=== PATIENT | male | born 2000 | race Caucasian/White ===

== ENCOUNTER 2024-11-13 19:23 | Emergency (ER) | payer OTHER, SELFPAY ==
[2024-11-13 19:31] VITALS: BP 136/74; PULSE 69; RESP 16; TEMP 36.9; O2SAT 100
--- NOTE | 2024-11-13 19:36 | ED_ITS ---
HPI - Skin/Abscess/Foreign Bdy General Chief complaint: Skin/Abscess/Foreign Body Stated complaint: SPIDER BITE Time Seen by Provider: 11/13/24 19:36 Source: patient and RN notes reviewed Mode of arrival: ambulatory Limitations: no limitations History of Present Illness HPI narrative: 24-year-old male presents Express Care complaining of possible spider bite to his left thigh. Patient said he noticed a a red bump on his left thigh on Monday. Said the bump was itchy on Monday and nausea redness and swelling has worsened. Patient says their house has brown recluse spiders in their home but he has denies possibility a brown recluse spider bite him. Patient has marked the border of his wound. Patient denies any fevers, body aches, chills, abnormal discharge, or muscle aches. Patient denies any systemic past medical history. Patient's tetanus is up today. Related Data Allergies Allergy/AdvReac Type Severity Reaction Status Date / Time amoxicillin Allergy Mild RED DOTS Verified 11/13/24 19:32 Review of Systems Review of Systems: CONSTITUTIONAL: Denies fever, chills, or sweats. EYES: Denies visual changes, redness, or discharge. ENT: Denies rhinorrhea, congestion, sore throat, or otalgia. CARDIOVASCULAR: Denies chest pain, palpitations, or edema. RESPIRATORY: Denies cough or dyspnea. GASTROINTESTINAL: Denies abdominal pain, nausea, vomiting, or diarrhea. GENITOURINARY: Denies dysuria or hematuria. SKIN: Denies rash or itching. Positive for wound. MUSCULOSKELETAL: Denies back pain, joint pain, or myalgia. NEUROLOGIC: Denies headache, numbness, or weakness. PSYCHIATRIC: Denies anxiety or depression. All other systems reviewed are negative, except as documented in HPI. PMFSH Comments At the time of my signature, I reviewed and agree with the nursing past medical, surgical, social, and family history. There is no relevant family history pertinent to the patient complaint. Exam Narrative: GENERAL: This is a well-nourished, well-developed adult, in no apparent distress. They are non ill-appearing, nontoxic appearing. HEAD: normocephalic, atraumatic. EYES: Sclera clear/white. Conjunctiva normal. Vision is grossly intact. Extraocular movements intact EARS: External ears normal, Hearing grossly intact. NOSE: External nose normal THROAT: Mucous membranes moist, NECK: Normal range of motion CARDIOVASCULAR: Regular rate and rhythm without murmurs, gallops, or rubs. RESPIRATORY: Respiratory rate normal, respiratory effort nonlabored, no respiratory distress SKIN: Left thigh: There is a single red pustule measuring approximately 1 cm in diameter. No obvious bug bite or puncture wu to the center of the pustule. No central clearing. No area of fluctuance, no induration. Border marked, scant surrounding cellulitis present. No necrosis or discharge. NEURO: awake, alert, and oriented to person, place and time. There were no obvious focal neurologic abnormalities. EXTREMITIES: No joint tenderness, effusion, or edema noted. BACK: Nontender without deformity. No CVA tenderness. Course Course Emergency Course: Portions of this record may have been created with voice recognition software Level of Care: Express Care Visit Vital Signs Vital signs: Vital Signs Temperature 98.5 F 11/13/24 19:31 Pulse Rate 69 11/13/24 19:31 Respiratory Rate 16 11/13/24 19:31 Blood Pressure 136/74 11/13/24 19:31 Pulse Oximetry 100 11/13/24 19:31 Temperature 98.5 F 11/13/24 19:31 Pulse Rate 69 11/13/24 19:31 Respiratory Rate 16 11/13/24 19:31 Blood Pressure 136/74 11/13/24 19:31 Pulse Oximetry 100 11/13/24 19:31 Reviewed MDM - Skin/Abscess/Foreign Bdy MDM Narrative Medical decision making narrative: There is a low suspicion the patient encountered a brown recluse bite. The patient says they do have brown recluse spider is in his home, the patient does not believe he was bit by a spider. Patient patient is exhibiting no signs of a brown recluse spider bite. Wound appears to be a folliculitis. Will treat with doxycycline as it appears that there is beginning of surrounding cellulitis to the pustule. Discussed physical exam findings. Advised supportive measures and signs/symptoms to go to the ER. Pt is appropriate for outpt treatment and f/u. Differential Diagnosis Differential diagnosis: Likely abscess of skin or subcutaneous tissue, cellulitis and other (Folliculitis) Critical Care Time Critical Care Time Critical Care Time: No Discharge Plan Discharge Clinical Impression: Folliculitis Patient Disposition: Home Condition: Stable Instructions: Antibiotic Form, Folliculitis (ED) Additional Instructions: Take antibiotics as directed. Wash the skin daily with mild soap and water. F ollow-up with primary care provider in 1 week. If redness worsens, you develop any fevers, notice any red streaking, or anything other concerns, please go to the ER immediately Patient Language: Citizen Of [place] Prescriptions: New doxycycline monohydrate 100 mg capsule 100 mg PO BID 7 Days Qty: 14 0RF Follow-up/Referrals: UNKNOWN,DOCTOR [Primary Care Provider] - Time of Disposition: 19:52
== END 2024-11-13 20:00 | disposition home or self-care (01) ==
DX: L73.9 Follicular disorder, unspecified (principal)
CPT/HCPCS: 99203; G0463

== ENCOUNTER 2025-05-15 18:36 | Emergency (ER) | payer OTHER, SELFPAY ==
[2025-05-15 18:49] VITALS: BP 142/71; PULSE 60; RESP 16; TEMP 36.6; O2SAT 100
--- NOTE | 2025-05-15 19:14 | ED.SKABFB ---
HPI - Skin/Abscess/Foreign Bdy General Chief complaint: Ear Stated complaint: Ear Irritation Time Seen by Provider: 05/15/25 19:07 Source: patient and RN notes reviewed Mode of arrival: ambulatory Limitations: no limitations History of Present Illness HPI narrative: 25-year-old male patient presents today with a pruritic rash to the right posterior ear x2 days, worsening since onset. No OTC treatment prior to arrival. No other symptoms. States he was in a field last weekend but unsure of the etiology of the rash. Related Data Allergies Allergy/AdvReac Type Severity Reaction Status Date / Time amoxicillin Allergy Mild RED DOTS Verified 11/13/24 19:32 PMFSH Comments At time of signature, I have reviewed and agree with nursing past medical, surgical, social and family history unless otherwise noted. Please see nursing chart for further information. There is no relevant family history pertinent to the presenting complaint Exam Narrative: GENERAL: Well-appearing, well-nourished, and in no acute distress. HEAD: Normocephalic, atraumatic. EYES: EOMI. No redness or drainage. Conjunctivae normal. ENT: Mucous membranes pink and moist. NECK: Normal AROM. CHEST: No respiratory distress. EXTREMITIES: Normal range of motion. No edema. SKIN: Warm, dry. Capillary refill normal. Normal skin turgor. Right ear: Large area of honey colored blistering to the posterior right helix, slight drainage. No tenderness, edema, or erythema to the skin. NEURO: No focal deficits. Alert and oriented x3. Gait steady. PSYCH: Normal affect. No signs of depression or anxiety. Course Course Level of Care: Express Care Visit Vital Signs Vital signs: Vital Signs Temperature 98 F 05/15/25 18:49 Pulse Rate 60 05/15/25 18:49 Respiratory Rate 16 05/15/25 18:49 Blood Pressure 142/71 H 05/15/25 18:49 Pulse Oximetry 100 05/15/25 18:49 Temperature 98 F 05/15/25 18:49 Pulse Rate 60 05/15/25 18:49 Respiratory Rate 16 05/15/25 18:49 Blood Pressure 142/71 H 05/15/25 18:49 Pulse Oximetry 100 05/15/25 18:49 Reviewed MDM - Skin/Abscess/Foreign Bdy MDM Narrative Medical decision making narrative: 25-year-old male patient presents today with a pruritic rash to the right posterior ear x2 days, worsening since onset. No OTC treatment prior to arrival. No other symptoms. States he was in a field last weekend but unsure of the etiology of the rash. Upon exam, Large area of honey colored blistering to the posterior right helix, slight drainage. No tenderness, edema, or erythema to the skin. Exam is consistent with impetigo. Prescriptions for mupirocin and keflex sent to pharmacy. Anticipatory guidance given. Vital signs stable. Differential Diagnosis Differential diagnosis: Likely abscess of skin or subcutaneous tissue, viral exanthem, dermatophytosis, urticaria, cellulitis, impetigo and contact dermatitis Critical Care Time Critical Care Time Critical Care Time: No Discharge Plan Discharge Clinical Impression: Impetigo Patient Disposition: Home Condition: Stable Instructions: Antibiotic Form, Impetigo (DC) Additional Instructions: Please take the oral antibiotics and use the mupirocin ointment as prescribed. Wash the area daily with soap and water, block dry with a paper towel, use the mupirocin ointment. Wash hands frequently to prevent the spread. Follow-up with your PCP in 3 days if symptoms are not improving. Patient Language: [place] Prescriptions: New cephalexin 500 mg capsule 500 mg PO Q6H 7 Days Qty: 28 0RF mupirocin 2 % ointment 1 applic topical BID 7 Days Qty: 22 0RF No Action doxycycline monohydrate 100 mg capsule 100 mg PO BID 7 Days Qty: 14 0RF Follow-up/Referrals: PHYSICIAN,PLUG CUTTING MACHINE OPERATOR [Primary Care Provider, Internal Medicine] Time of Disposition: 19:22
== END 2025-05-15 19:26 | disposition home or self-care (01) ==
PROVIDERS: Emergency Provider Nurse Practitioner
DX: L01.00 Impetigo, unspecified (principal)
CPT/HCPCS: 99213; G0463